=== PATIENT | female | born 1990 | race Caucasian/White ===

== ENCOUNTER → 2017-04-19 | Outpatient (CLI) | payer BC ==
--- NOTE | 2017-04-19 16:30 | US ---
EXAMINATION TYPE: US pelvic complete DATE OF EXAM: 04/19/2017 COMPARISON: NONE CLINICAL HISTORY: N91.5 Oligomenorrhea. IUD placement 11/10/16 TECHNIQUE: Transabdominal (TA) Date of LMP: 04/08/17 EXAM MEASUREMENTS: Uterus: 7.3 x 2.5 x 4.4 cm Endometrial Stripe: 0.6 cm Right Ovary: 4.3 x 2.0 x 2.0 cm Left Ovary: 3.5 x 1.7 x 1.4 cm 1. Uterus: Anteverted wnl 2. Endometrium: wnl, IUD visualized body/fundus 3. Right Ovary: follicles noted 4. Left Ovary: follicles noted 5. Bilateral Adnexa: wnl 6. Posterior cul-de-sac: wnl IMPRESSION: IUD in place. Otherwise unremarkable study.
== END | disposition home or self-care (01) ==
LOC: RADUSWWP 15:38
PROVIDERS: ATTEND Obstetrics & Gynecology
DX: N91.5 Oligomenorrhea, unspecified (principal); Z97.5 Presence of (intrauterine) contraceptive device
CPT/HCPCS: 76856

== ENCOUNTER → 2018-05-24 | Outpatient (CLI) | payer BC ==
--- NOTE | 2018-05-24 18:40 | CT ---
EXAMINATION TYPE: CT angio chest DATE OF EXAM: 05/24/2018 6:27 PM COMPARISON: None HISTORY: Chest pain, SOB CT DLP: 472.8 mGycm Automated exposure control for dose reduction was used. CONTRAST: CTA scan of the thorax is performed with IV Contrast, patient injected with 100 mL of Isovue 370, [facility]. There are 3-D post processed images.. FINDINGS: The lungs are clear of infiltrate. There is no evidence of a pulmonary mass. There is no pleural effu crystal or pneumothorax. There is no mediastinal adenopathy. Thoracic aorta appears normal. There is no aneurysm or dissection. There are no hilar masses. There is normal contrast opacification of the pulmonary arteries. I see no filling defects. The bony thorax appears intact. IMPRESSION: NEGATIVE EXAM. NO EVIDENCE OF PULMONARY EMBOLISM.
== END ==
LOC: RADCTMAIN 17:34
PROVIDERS: ATTEND Family Medicine
DX: R07.1 Chest pain on breathing (principal)
CPT/HCPCS: 71275; Q9967

== ENCOUNTER 2019-01-12 06:55 | Day surgery (SDC) | payer BC ==
[2019-01-10 15:37] VITALS: BMI 48.6
[~2019-01-12 06:55] MED LIST: LACTATED RINGERS 1,000 ML IV SCH; LIDOCAINE 1% 20 ML VIAL (10MG/ML) FOR IV START INTRADERMA PRN
[2019-01-12 07:13] VITALS: TEMP 99
[2019-01-12] MEDS ORDERED: LACTATED RINGERS 1,000 ML IV ONE ×2 (07:21)
[2019-01-12] MEDS ORDERED: LIDOCAINE 1% INJ 10MG/ML (20 ML MDV) ONE (07:32)
[2019-01-12] MEDS ORDERED: MIDAZOLAM 2 MG/2 ML VIAL ONE (07:32)
[2019-01-12] MEDS ORDERED: PROPOFOL 10 MG/ML 20 ML VIAL IV ONE (07:32)
--- NOTE | 2019-01-12 08:13 | P.PCN ---
Date of Procedure: 01/12/19 Description of Procedure: Brief history: 28-year-old female who presents in the outpatient setting for EGD and colonoscopy. The patient was recently seen in clinic at which time she reported change in bowel habits and abdominal pain. She reported typically having 3-4 bowel movements daily. No nighttime bowel movements. She reports associated urgency with bowel movements. Previously the patient was reporting one bowel movement per day. She does have a history of Clostridium difficile colitis which she was treated for with Flagyl approximately one year ago. Recent testing for Clostridium difficile was negative. She also reports occasional blood per rectum, mainly with wiping. Abdominal pain is described as intermittent in the lower abdominal area and cramping in nature. She has taken dicyclomine as needed for the pain. In addition she is also having epigastric abdominal pain which she describes as more aching in nature. She reports associated nausea and vomiting. Occasional heartburn once per week. No dysphagia or odynophagia. Previous colonoscopy was 5 years ago for constipation. Procedure performed: Esophagogastroduodenoscopy with biopsy Colonoscopy with biopsy and polypectomy Estimated blood loss: Minimal. Preoperative diagnosis: Epigastric abdominal pain, altered bowel function, bright red blood per rectum Anesthesia: MAC Procedure: After informed consent was obtained from the patient was brought into the endoscopy unit and IV sedation was administered by anesthesia under continuous monitoring. Initially upper endoscopy was done. The Olympus GF 190 video endoscope was inserted inserted into the mouth and esophagus intubated without any difficulty and was gradually advanced into the stomach and duodenum and carefully examined. The bulb and second part of the duodenum appeared normal, with biopsies in the setting of altered bowel. The scope was then withdrawn into the stomach adequately insufflated with air and upon careful examination the antrum and body, cardia and fundus appeared grossly normal, however there was some erythema and superficial erosions in the antrum and body suggestive of moderate gastritis with biopsies of the antrum and body taken. The scope was then withdrawn into the esophagus. The GE junction was located at 37 cm to the incisors. It appeared regular with no erythema erosions or ulcerations. Rest of the esophagus appeared normal. Patient tolerated the procedure well. At this time the patient continued to remain sedation. Initial digital rectal examination was normal. Olympus CF 190 video colonoscope was then inserted into the rectum and gradually advanced to the cecum without any difficulty. The terminal ileum was intubated and appeared normal, biopsies were taken. Careful examination was performed as the scope was gradually being withdrawn. The prep was excellent. The cecum, ascending colon, transverse colon, descending colon, sigmoid colon and rectum appeared normal, with random biopsies taken of the right colon, transverse colon and left colon in the setting of altered bowel function. A diminutive 2 mm sessile transverse colon polyp was removed with cold forcep polypectomy. Retroflexion was performed in the rectum and no lesions were noted, mild internal hemorrhoids seen. Patient tolerated the procedure well. Impression: 1. Moderate gastritis antrum and body, biopsied. Duodenal biopsies. 2. Random biopsies, terminal ileum, right colon, transverse colon and left colon. Cold forcep polypectomy of a diminutive transverse colon polyp. Mild internal hemorrhoids. Recommendations: Findings of this examination were discussed with the patient as well as her fianc. Okay to resume diet. Await pathology from biopsies. Follow up with gastroenterology as previously scheduled. Continue dicyclomine as needed for abdominal pain. Consideration is for initiation of PPI therapy on outpatient follow-up.
[2019-01-12 08:26] VITALS: BP 129/75; PULSE 85; RESP 18
== END 2019-01-12 08:46 | disposition home or self-care (01) ==
LOC: ORWHC2ENDO 06:55
PROVIDERS: ATTEND Internal Medicine
DX: D12.3 Benign neoplasm of transverse colon (principal); K29.50 Unspecified chronic gastritis without bleeding; K64.8 Other hemorrhoids; E66.01 Morbid (severe) obesity due to excess calories; Z68.42 Body mass index [BMI] 45.0-49.9, adult
CPT/HCPCS: 81025; 88305; 45380; 43239; J2250; J2001; J2704

== ENCOUNTER → 2019-05-27 | Outpatient (CLI) | payer BC ==
--- NOTE | 2019-05-27 11:50 | CT ---
EXAMINATION TYPE: CT abdomen pelvis w con DATE OF EXAM: 05/27/2019 COMPARISON: None HISTORY: Generalized abdominal and pelvic pain with diarrhea and nausea. CT DLP: 2144.3 mGycm CONTRAST: CT scan of the abdomen and pelvis is performed with Oral Contrast and with IV Contrast, patient injec giovanny with 100 mL of Isovue M300. FINDINGS: LUNG BASES-: No visible nodule. No infiltrate. LIVER/GB: No calcified gallstones. No space occupying hepatic lesion. Biliary tree is of normal ca liber. PANCREAS: No inflammation. No distinct mass. SPLEEN: No splenic enlargement. No lesion seen. ADRENALS: No nodule. No thickening. KIDNEYS/BLADDER: No hydronephrosis. No nephrolithiasis. No distinct renal mass. Urinary bladder g rossly unremarkable. BOWEL: Normal appendix. Normal bowel caliber. No inflammation. GENITAL ORGANS: No gross abnormality. IUD is noted to be in place. LYMPH NODES: No greater than 1cm abdominal or pelvic lymph nodes are appreciated. AORTA: No significant abnormality. OSSEOUS STRUCTURES: No significant abnormality is seen. OTHER: No significant additional abnormality is seen. IMPRESSION: 1. No distinct abnormality appreciated to account for the patient's symptoms.
== END ==
LOC: RADCTMAIN 09:44
PROVIDERS: ATTEND Family Medicine
DX: R10.9 Unspecified abdominal pain (principal); R10.2 Pelvic and perineal pain; R19.7 Diarrhea, unspecified
CPT/HCPCS: 74177; Q9967 ×2

== ENCOUNTER → 2020-12-20 | Outpatient (CLI) | payer BC ==
[2020-12-20 20:34] LABS: Cyclic Citrull Pep IgG Unit <0.5 U/mL; Cyclic Citrullinated Pep IgG NEGATIVE (NEGATIVE)
[2020-12-20 21:06] LABS: Ferritin 7.5 ng/mL (10.0-291.0)
[2020-12-20 22:05] LABS: % Iron Saturation 9.36 (12.00-45.00); C Reactive Protein 0.9 mg/dL (0.0-0.8)
[2020-12-20 22:45] LABS: Hepatitis B Core IgM Non-Reactive (Non-Reactive); Hepatitis B Surface AB- Quant 6.9 mIU/mL; Hepatitis B Surface Antibody Non-Reactive (Non-Reactive); Hepatitis B Surface Antigen Non-Reactive (Non-Reactive); Hepatitis C IgG Antibody Non-Reactive (Non-Reactive)
[2020-12-20 23:51] LABS: Basophils # (A) 0.01 X 10*3/uL (0.00-0.10); Basophils % (A) 0.1 %; Eosinophils # (A) 0.13 X 10*3/uL (0.04-0.35); Eosinophils % (A) 1.9 %; HCT 36.1 % (37.2-46.3); HGB 11.5 g/dL (12.0-15.0); Lymphocytes # (A) 2.33 X 10*3/uL (0.90-5.00); Lymphocytes % (A) 33.6 %; MCHC 31.9 g/dL (32.0-37.0); Mean Platelet Volume 10.6 fL (9.5-12.2); Monocytes # (A) 0.54 X 10*3/uL (0.20-1.00); Monocytes % (A) 7.8 %; Neutrophils # (A) 3.92 X 10*3/uL (1.80-7.70); Neutrophils % (A) 56.5 %; Platelet Count 308 X 10*3/uL (140-440); RDW 14.9 % (11.5-14.5); WBC 6.94 X 10*3/uL (4.50-10.00)
[2020-12-21 01:58] LABS: Erythrocyte Sedimentation Rate 30 mm/Hr (0-20)
[2020-12-21 12:25] LABS: HLA B27 NEGATIVE
== END | disposition home or self-care (01) ==
LOC: LABWHC1 13:34
PROVIDERS: ATTEND Nurse Practitioner Family
DX: N92.0 Excessive and frequent menstruation with regular cycle (principal); M19.90 Unspecified osteoarthritis, unspecified site; R10.9 Unspecified abdominal pain
CPT/HCPCS: 36415; 82728; 83540; 83550; 84443; 85025; 85652; 86140; 86200; 86480; 86704; 86705; 86706; 86803; 86812; 87340

== ENCOUNTER 2021-05-14 06:21 | Day surgery (SDC) | payer BC ==
[2021-05-07 10:06] VITALS: BMI 52.2
--- NOTE | 2021-05-13 11:13 | P.HPOB ---
History of Present Illness H&P Date: 05/13/21 Chief Complaint: Menorrhagia with irregular cycle This is a 30 y.o. female, 0, para 0, who presents for dilatation and curettage with hysteroscopy and Novasure endometrial ablation due to menorrhagia with irregular cycle. She also has a Paragard IUD that she wants removed at the same time. She had Paragard placed about a year ago and ever since has more cramping and breakthrough bleeding. She is also having irregular periods and didn't have a period from October until February and then bled for almost a month. Bleeding has been very heavy, going through ultra tampon within 1 hour. Ultrasound showed uterus measuring 7.7 x 2.7 x 4.6 cm with IUD in position. Normal ovaries. She is aware that Novasure is not a form of control. Her plans vasectomy. She has not done well with hormonal forms of control. OB Hx: G0. 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 Works part-time with [employer]. Review of Systems Constitutional: Reports fatigue, Denies chills, Denies fever Eyes: denies blurred vision, denies pain Ears, nose, mouth and throat: Denies headache, Denies sore throat Cardiovascular: Denies chest pain, Denies shortness of breath Respiratory: Denies cough Gastrointestinal: Reports heartburn Genitourinary: Reports dysmenorrhea, Reports menorrhagia, Denies dysuria, Denies hematuria Menstruation: Reports menses 8 or > days, Reports menses variable, Reports period heavy Musculoskeletal: Reports muscle cramps Integumentary: Denies pruritus, Denies rash Neurological: Denies numbness, Denies weakness Psychiatric: Reports anxiety, Reports depression Past Medical History Past Medical History: No Reported History Additional Past Medical History / Comment(s): IBS. History of Any Multi-Drug Resistant Organisms: None Reported Additional Past Surgical History / Comment(s): Colonoscopy. Past Anesthesia/Blood Transfusion Reactions: No Reported Reaction Additional Past Anesthesia/Blood Transfusion Reaction / Comment(s): Never has had general anesthesia. Vertigo. Past Psychological History: Anxiety, Depression Smoking Status: Never smoker Past Alcohol Use History: Occasional Past Drug Use History: None Reported - Past Family History Mother Family Medical History: No Reported History Medications and Allergies Home Medications Medication Instructions Recorded Confirmed Type Omeprazole (Unknown Dose) 1 tab PO QAM 05/07/21 05/07/21 History Sertraline [Zoloft] 100 mg PO DAILY 05/13/21 05/14/21 History Allergies Allergy/AdvReac Type Severity Reaction Status Date / Time Iodinated Contrast Media Allergy Rash/Hives Verified 05/07/21 10:09 Exam Osteopathic Statement: *. No significant issues noted on an osteopathic structural exam other than those noted in the History and Physical/Consult. HEENT: within normal limits Heart: regular rate and rhythm Lungs: clear to auscultation bilaterally Abdomen: soft, non-tender Pelvic: uterus small, anteverted, non-tender Extremities: neg. Radha's Assessment and Plan (1) Menorrhagia with irregular cycle Current Visit: No Status: Acute Code(s): N92.1 - EXCESSIVE AND FREQUENT MENSTRUATION WITH IRREGULAR CYCLE SNOMED Code(s): 930895106 Plan: Proceed with dilatation and curettage with hysteroscopy and Novasure endometrial ablation and removal of IUD. I have discussed the risks, benefits, and alternative therapies for the above-mentioned procedure and for both sedation/anesthesia as well as necessary blood products administration, if indicated, as they pertain to this patient. The patient has indicated her understanding and acceptance of the risks and procedures discussed.
[~2021-05-14 06:21] MED LIST changes: +DEXAMETHASONE SOD PHOSPHATE 4 MG/ML 1 ML VIAL IV ONE; +LIDOCAINE 1% (10MG/ML) FOR IV START INTRADERMA PRN; -LIDOCAINE 1% 20 ML VIAL (10MG/ML) FOR IV START INTRADERMA PRN; +MIDAZOLAM 2 MG/2 ML VIAL IV PRN; +ONDANSETRON 4 MG/2 ML VIAL IVP ONE; +Pre Op ABX Message 1 EACH MISC MISCELLANE ONE
[2021-05-14] MEDS ORDERED: HYDROmorphone 0.5 MG/0.5 ML SYRINGE IVP PRN (07:00)
[2021-05-14] MEDS ORDERED: SCOPOLAMINE 1.5MG/72HR PATCH TRANSDERM ONE (07:06)
[2021-05-14] MEDS ORDERED: MIDAZOLAM 2 MG/2 ML VIAL ONE (07:23)
[2021-05-14] MEDS ORDERED: LIDOCAINE 1% INJ 10MG/ML (20 ML MDV) ONE (07:23)
[2021-05-14] MEDS ORDERED: fentaNYL (PF) 50 MCG/ML 2 ML AMP ONE (07:23)
[2021-05-14] MEDS ORDERED: PROPOFOL 10 MG/ML 20 ML VIAL IV ONE (07:23)
[2021-05-14] MEDS ORDERED: SUCCINYLCHOLINE CHLORIDE VIAL 200 MG/10 ML VIAL IV ONE (07:23)
--- NOTE | 2021-05-14 07:59 | P.OP ---
Date of Procedure: 05/14/21 Preoperative Diagnosis: Menorrhagia with irregular cycle Postoperative Diagnosis: Same Procedure(s) Performed: Dilation and curettage with hysteroscopy and NovaSure endometrial ablation Removal of IUD Anesthesia: SHERRON Surgeon: Desi Crespo Estimated Blood Loss (ml): 10 Pathology: other (Endometrial curettings) Condition: stable Disposition: same day Indications for Procedure: This is a 30 y.o. female, 0, para 0, who presents for dilatation and curettage with hysteroscopy and Novasure endometrial ablation due to menorrhagia with irregular cycle. She also has a Paragard IUD that she wants removed at the same time. She had Paragard placed about a year ago and ever since has more cramping and breakthrough bleeding. She is also having irregular periods and didn't have a period from October until February and then bled for almost a month. Bleeding has been very heavy, going through ultra tampon within 1 hour. Ultrasound showed uterus measuring 7.7 x 2.7 x 4.6 cm with IUD in position. Normal ovaries. She is aware that Novasure is not a form of control. Her plans vasectomy. She has not done well with hormonal forms of control. Operative Findings: Uterus is anteverted, sounded to 8 cm. Cervix is sounded to 3 cm. Upon hysteroscopy, a dyssynchronous endometrial pattern was noted. Both tubal ostia are visualized. A moderate amount of endometrial curettings are obtained. ParaGard IUD strings were visualized at the endocervix. Description of Procedure: The patient is taken to the operating room. She is placed in the dorsal lithotomy position after general anesthesia was given. She is prepped and draped in the normal sterile fashion. Bladder is drained with a catheter and then removed. Pelvic exam is performed under anesthesia. Uterus is found to be anteverted with no adnexal masses. She is placed in slight Trendelenburg position. A right angle retractor is used to visualize the cervix. The anterior lip of the cervix is grasped with a single-tooth tenaculum. IUD strings are visualized. There grasped with a ring forcep and the IUD is completely removed and discarded. A ParaGard IUD was noted. Cervix is sounded to 3 cm. Uterus is sounded to 8 cm. Cervix is gently dilated with Ríos dilators until a hysteroscope could be passed. Hysteroscopy is performed using normal saline. The above noted findings are noted. Next a polyp forceps is introduced. A moderate amount of tissue was obtained. Next medium-sized size sharp curette was placed. A moderate amount of endometrial curettings were obtained. Next NovaSure array was inserted into the endometrial cavity. Length was set at 5 cm and width was determined to be 3.6 cm. Next cavity assessment was completed and passed on the first try. Next NovaSure array was fired at 99 W for 70 seconds. Next the array was removed, inspected and then discarded. Next the hysteroscope was reinserted. Uniform charring was noted. Pictures were taken. Hysteroscope was removed. Single-tooth tenaculum was removed from the anterior lip of the cervix. Minimal bleeding was noted. All other instruments removed from the vagina. Sponge counts were correct. Patient is taken to recovery room in stable condition.
[2021-05-14 08:20] VITALS: TEMP 98.2
[2021-05-14] MEDS ORDERED: KETOROLAC 15 MG/ML 1 ML VIAL ONE (08:21)
[2021-05-14 09:13] VITALS: RESP 16
[2021-05-14 09:28] VITALS: BP 116/82; PULSE 72
== END 2021-05-14 09:50 | disposition home or self-care (01) ==
LOC: OR 06:21
PROVIDERS: ATTEND Obstetrics & Gynecology
DX: N92.1 Excessive and frequent menstruation with irregular cycle (principal); F32.9 Major depressive disorder, single episode, unspecified; K21.9 Gastro-esophageal reflux disease without esophagitis; E66.01 Morbid (severe) obesity due to excess calories; F41.9 Anxiety disorder, unspecified; Z30.432 Encounter for removal of intrauterine contraceptive device; K58.9 Irritable bowel syndrome, unspecified; Z79.899 Other long term (current) drug therapy
CPT/HCPCS: 88305; 58563; 58301; J2250; J0330; J1100; J2405; J2001; J3010; J1885; J2704; J1170

== ENCOUNTER → 2022-01-10 | Outpatient (CLI) | payer BC ==
[2022-01-10 16:16] LABS: Basophils # (A) 0.03 X 10*3/uL (0.00-0.10); Basophils % (A) 0.5 %; Eosinophils # (A) 0.14 X 10*3/uL (0.04-0.35); Eosinophils % (A) 2.1 %; HCT 40.2 % (37.2-46.3); HGB 12.8 g/dL (12.0-15.0); Immature Grans, Automated 0.2 %; Lymphocytes # (A) 2.12 X 10*3/uL (0.90-5.00); Lymphocytes % (A) 32.3 %; MCH 26.9 pg (27.0-32.0); MCHC 31.8 g/dL (32.0-37.0); MCV 84.6 fL (80.0-97.0); Monocytes # (A) 0.46 X 10*3/uL (0.20-1.00); NRBC Per 100 WBC 0 /100 WBCS (0.0-0.0); Neutrophils # (A) 3.81 X 10*3/uL (1.80-7.70); Neutrophils % (A) 57.9 %; Platelet Count 298 X 10*3/uL (140-440); RBC 4.75 X 10*6/uL (4.10-5.20); RDW 14.2 % (11.5-14.5); WBC 6.57 X 10*3/uL (4.50-10.00)
[2022-01-10 16:18] LABS: ALT 19 U/L (8-44); AST 19 U/L (13-35); African American GFR (CKD) 100.1 (60.0-200.0); Albumin 4.1 g/dL (3.8-4.9); Albumin/Globulin Ratio 1.28 (1.60-3.17); Alkaline Phosphatase 81 U/L (41-126); BUN/Creat Ratio 12.78 Ratio (12.00-20.00); Blood Urea Nitrogen 11.5 mg/dL (9.0-27.0); Calcium 9.2 mg/dL (8.7-10.3); Chloride 106 mmol/L (96-109); Chol/HDL Ratio 3.51 Ratio; Creatine Kinase 68 U/L (26-186); Globulin 3.2 g/dL (1.6-3.3); Glucose 94 mg/dL (70-110); LDL Cholesterol,Calculated 133.9 mg/dL (0.0-131.0); Non-African American GFR(CKD) 86.4 (60.0-200.0); Sodium 139 mmol/L (135-145); Total Protein 7.3 g/dL (6.2-8.2)
[2022-01-10 16:19] LABS: Protein, Total 7.1 g/dL (6.2-8.2)
[2022-01-10 16:34] LABS: Erythrocyte Sedimentation Rate 34 mm/Hr (0-20)
[2022-01-10 18:12] LABS: Thyroid Peroxidase Antibodies <9.0 U/mL (0.0-33.0)
[2022-01-12 13:45] LABS: Albumin 3.96 g/dL (3.80-4.90); Gamma Globulin 1.05 g/dL (0.70-1.50)
[2022-01-13 11:10] LABS: Free Kappa Lt Chain Qnt, Serum 1.65 mg/dL (0.33-1.94); Free Lambda Lt Chain Qnt, Seru 1.04 mg/dL (0.57-2.63)
== END | disposition home or self-care (01) ==
LOC: LABWHC1 11:07
PROVIDERS: ATTEND Nurse Practitioner Family
DX: Z13.220 Encounter for screening for lipoid disorders (principal); M62.81 Muscle weakness (generalized); R53.82 Chronic fatigue, unspecified
CPT/HCPCS: 36415; 80053; 80061; 82306; 82550; 82607; 83735; 83874; 83883; 84165; 84443; 84481; 85025; 85652; 86038; 86140; 86334; 86376

== ENCOUNTER → 2022-04-16 | Outpatient (CLI) | payer BC ==
--- NOTE | 2022-04-16 14:20 | P.SLEEP ---
History of Present Illness DATE: 04/16/2022 CONSULTATION/NEW PATIENT EVALUATION HISTORY OF PRESENT ILLNESS/SLEEP-WAKE EVALUATION: 31 year old lady had been evaluated in the sleep center for possible obstructive sleep apnea hypopnea syndrome and significant excessive daytime sleepiness. SLEEP SCHEDULE: Usually sleep schedule on weekdays from 10 PM until 6 AM, during days off from 11 PM to 11 AM, patient gets out of bed and 1 PM on weekend. FALLING ASLEEP: No problem with falling asleep, no TV in bedroom. DURING SLEEP: Patient usually sleeps on the back and side position, with the snoring and awakenings from sleep 2 times without nocturia. Positive history of heartburn. Positive history of hypnogogical hallucinations and sleep off paralysis, no history of cataplexy . DURING THE DAY/WAKE STATE: In the morning patient wake up tired, has difficulties to pay attention, falling asleep during the day. Patient has promised with memory, irritability and depression. [place] sleepiness scale is increased to 11. Patient take at least 1 nap at 2 PM. Positive history of vivid dreams during naps. PAST MEDICAL HISTORY: Depression. PAST SURGICAL HISTORY: Uterine ablation. MEDICATIONS: Sertraline 100 mg once a day, Adderall 15 mg once a day, omeprazole 20 mg once a day. SOCIAL HISTORY: No history of smoking, alcohol consumption occasional. FAMILY HISTORY: Hypertension, heart problems, kidney disease, mental illness. REVIEW OF SYSTEMS: Snoring, awakenings from sleep, sleepiness, history of sleep of paralysis. No fevers. No double vision. No recent chest pain. No shortness of breath. No abdominal pain. No bleeding episodes. No blood in urine. No seizure episodes. PHYSICAL EXAMINATION: GENERAL: A pleasant patient without any distress. VITAL SIGNS: BP 130/84 , HR 97 , RR 18 , weight 301.4 pounds, height 5 foot 4 inches, body mass index 51.6 . HEENT: PERRLA, EOMI. Evaluation of oropharynx showed tongue protrudes midline, low position of soft palate Mallampati4. NECK: Supple. No JVD. Thyroid is not palpable. 15-1/2 inches in circumference. LUNGS: Clear to percussion and to auscultation. Good air exchange. No wheezing or rhonchi. HEART: S1, S2 regular. No murmurs, gallops or rubs. ABDOMEN: Soft and nontender. Bowel sounds are present. No organomegaly appreciated. Obese. EXTREMITIES: No clubbing or cyanosis. CADDY MASTER: Awake, alert, and oriented x3. Cranial nerves 2 to 7 intact. There is no fasciculation or atrophy noted. No focal deficits observed. ASSESSMENT: 1. Snoring, awakenings from sleep, extremely low position of soft palate Mallampati 4, sleepiness. Obstructive sleep apnea hypopnea syndrome. 2. Significant excessive daytime sleepiness. [place] Sleepiness Scale is increased while patient is on treatment with Adderall. Positive history of possible hypnogogical hallucinations. Differential diagnosis includes narcolepsy. 3 history of sleep off paralysis episodes. 4. Obesity body mass index 51.6. 5 history of depression. 6. Status post a uterus ablation for bleeding. 7. Acid reflux. PLAN: 1. Polysomnography for evaluation of patient's breathing during sleep. 2. CPAP/BiPAP titration if sleep study confirms obstructive sleep apnea- hypopnea syndrome. 3. Preferable position during sleep on the side. 4. No driving if patient feels any sleepiness. Patient is aware of civil and criminal liability for unsafe driving. 5. Sleep hygiene with regular sleep time for at least 7.5-8 hours. 6. Losing weight. 7. If sleep study will be negative for obstructive sleep apnea hypopnea syndrome patient will need multiple sleep latency test. Thank you very much for referring this patient for consultation. Sincerely, Lucio Chao MD, PhD, FAASM. Diplomat of [place] [employer], Sleep Medicine Board by [place] [employer] [place] [employer] [facility] Past Medical History Past Medical History: No Reported History Additional Past Medical History / Comment(s): IBS. History of Any Multi-Drug Resistant Organisms: None Reported Additional Past Surgical History / Comment(s): Colonoscopy. Past Anesthesia/Blood Transfusion Reactions: No Reported Reaction Additional Past Anesthesia/Blood Transfusion Reaction / Comment(s): Never has had general anesthesia. Vertigo. Past Psychological History: Anxiety, Depression Smoking Status: Never smoker Past Alcohol Use History: Occasional Past Drug Use History: None Reported - Past Family History Mother Family Medical History: No Reported History Medications and Allergies Home Medications Medication Instructions Recorded Confirmed Type Omeprazole (Unknown Dose) 1 tab PO QAM 05/07/21 05/07/21 History Sertraline [Zoloft] 100 mg PO DAILY 05/13/21 05/14/21 History Allergies Allergy/AdvReac Type Severity Reaction Status Date / Time Iodinated Contrast Media Allergy Rash/Hives Verified 05/07/21 10:09 Sleep Note - Sleep Note Sleep Note: Temperature: Pulse Rate: Respiratory Rate: Blood Pressure: SpO2: Height: Weight: BMI: Neck Circumference:
== END ==
LOC: SLEEP 13:48
PROVIDERS: ATTEND Internal Medicine
DX: G47.33 Obstructive sleep apnea (adult) (pediatric) (principal); E66.9 Obesity, unspecified; Z68.43 Body mass index [BMI] 50.0-59.9, adult; F32.A Depression, unspecified; Z98.890 Other specified postprocedural states; K21.9 Gastro-esophageal reflux disease without esophagitis; Z86.69 Personal history of other diseases of the nervous system and sense organs; Z91.041 Radiographic dye allergy status
CPT/HCPCS: 99211

== ENCOUNTER 2022-07-07 10:53 | Emergency (ER) | payer BC ==
[2022-07-07 11:05] VITALS: TEMP 98
[2022-07-07] MEDS ORDERED: KETOROLAC 15 MG/ML 1 ML VIAL IVP STA (11:11)
[2022-07-07] MEDS ORDERED: ONDANSETRON 4 MG/2 ML VIAL IVP STA (11:11)
[2022-07-07] MEDS ORDERED: FAMOTIDINE 20 MG/2 ML VIAL IV STA (11:11)
[2022-07-07] MEDS ORDERED: SODIUM CHLORIDE 0.9% 1,000 ML IV STA (11:11)
--- NOTE | 2022-07-07 11:19 | ED ---
Chest Pain HPI - General Chief Complaint: Chest Pain Stated Complaint: chest pain Time Seen by Provider: 07/07/22 11:06 Source: patient, RN notes reviewed Mode of arrival: ambulatory Limitations: no limitations - History of Present Illness Initial Comments: This is a 31-year-old female who presents to the emergency department for chest pain. States that around 5 AM, she woke up and had a tightness in the center of her chest. Denies any radiation of symptoms. She had associated nausea and lightheadedness. She feels like she is unable to take a deep breath. Denies any history of similar symptoms in the past. She does have a history of obstructive sleep apnea but no other respiratory issues. There is no history of cardiac issues in any of her immediate family members. Denies any fevers, chills, sore throat, cough, abdominal pain, vomiting, back pain, or headaches. MD Complaint: chest pain Pain Location: substernal Pain Radiation: none Quality: tightness, heaviness Consistency: constant Anginal Symptoms: nausea Treatments Prior to Arrival: none - Related Data Home Medications Medication Instructions Recorded Confirmed Sertraline [Zoloft] 100 mg PO DAILY 05/13/21 07/07/22 Omeprazole [PriLOSEC] 20 mg PO DAILY 07/07/22 07/07/22 modafiniL [Provigil] 200 mg PO DAILY 07/07/22 07/07/22 Allergies Allergy/AdvReac Type Severity Reaction Status Date / Time Iodinated Contrast Media Allergy Rash/Hives Verified 07/07/22 12:34 Review of Systems ROS Statement: Those systems with pertinent positive or pertinent negative responses have been documented in the HPI. ROS Other: All systems not noted in ROS Statement are negative. EKG Findings - EKG Comments: EKG Findings:: Sinus rhythm. Ventricular rate 74 bpm, WA interval 139 ms, QRS duration 89 ms, QTC 410 ms. Past Medical History Past Medical History: No Reported History Additional Past Medical History / Comment(s): IBS. History of Any Multi-Drug Resistant Organisms: None Reported Additional Past Surgical History / Comment(s): Colonoscopy. Past Anesthesia/Blood Transfusion Reactions: No Reported Reaction Additional Past Anesthesia/Blood Transfusion Reaction / Comment(s): Never has had general anesthesia. Vertigo. Past Psychological History: Anxiety, Depression Smoking Status: Never smoker Past Alcohol Use History: Occasional Past Drug Use History: None Reported - Past Family History Mother Family Medical History: No Reported History General Exam Limitations: no limitations General appearance: alert, in no apparent distress Head exam: Present: atraumatic, normocephalic, normal inspection Respiratory exam: Present: normal lung sounds bilaterally. Absent: respiratory distress, wheezes, rales, rhonchi, stridor, chest wall tenderness Cardiovascular Exam: Present: regular rate, normal rhythm, normal heart sounds. Absent: systolic murmur, diastolic murmur, rubs, gallop, clicks GI/Abdominal exam: Present: soft, normal bowel sounds. Absent: distended, tenderness, guarding, rebound, rigid Neurological exam: Present: alert, oriented X3, CN II-XII intact Psychiatric exam: Present: normal affect, normal mood Skin exam: Present: warm, dry, intact, normal color. Absent: rash Course Vital Signs 07/07/22 07/07/22 07/07/22 11:03 12:05 14:11 Temperature 98 F Pulse Rate 80 71 86 Respiratory 20 18 Rate Blood Pressure 127/82 124/70 O2 Sat by Pulse 99 98 Oximetry 07/07/22 15:18 Temperature Pulse Rate Respiratory 18 Rate Blood Pressure O2 Sat by Pulse Oximetry Chest Pain MDM - MDM This is a 31-year-old female who presents to the emergency department for chest pain. Chest x-ray reveals no acute cardiopulmonary process. Lab work reveals an elevated d-dimer of 1.83. CTA of the chest was subsequently obtained. This did not identify any signs of a pulmonary embolus or other acute abnormalities to account for the patient's symptoms. Lab work was otherwise nonactionable. COVID and influenza testing were negative. She was given IV fluids, Zofran, Toradol, and Pepcid. Her symptoms completely resolved afterwards. The Solu- Medrol and Benadryl were administered due to the contrast allergy and had to be given prior to the scan. Advised the patient that her workup is negative at this time we're unable to find a cause for the chest pain. This is most likely noncardiac in nature due to the negative workup. Advised she take ibuprofen and an antacid if this happens in the future. Also instructed her to follow-up with her primary care provider to discuss if any additional testing is indicated. Return precautions reviewed in depth, the patient is instructed to return to the emergency department with any new, worsening, or concerning symptoms. Patient verbalized understanding. This case was discussed in detail with the attending ED physician. Presentation, findings, and treatment plan discussed in detail as well. - Wells Criteria Clinical Symptoms of DVT: (0) No No Alternative Diagnosis: (0) No Immobilization of Surgery in Previous 4 Weeks: (0) No Previous DVT/PE: (0) No Hemoptysis: (0) No Malignancy: (0) No - INGRID Score Age > 65: (0) No 3 or more CAD Risk Factors: (0) No Known CAD with more than 50% Stenosis: (0) No Aspirin use within the Past 7 Days: (0) No Elevated Cardiac Markers: (0) No ST Deviation Greater than 0.5mm: (0) No Disposition Clinical Impression: Non-cardiac chest pain Disposition: HOME SELF-CARE Instructions (If sedation given, give patient instructions): Noncardiac Chest Pain (ED) Additional Instructions: Return to the emergency department with any new, worsening, or concerning symptoms. If symptoms recur, try taking ibuprofen and an antacid such as Pepcid, Maalox, or Tums. Follow-up with your primary care provider to discuss if any additional testing is indicated. Follow up with your primary care provider in 1-2 days. Is patient prescribed a controlled substance at d/c from ED?: No Referrals: Regino Hernandez DO [Primary Care Provider] - 1-2 days
[2022-07-07 11:39] LABS: Basophils % (A) 0 %; Eosinophils # (A) 0.2 k/uL (0-0.7); Eosinophils % (A) 4 %; HCT 41.4 % (34.0-46.0); HGB 13.5 gm/dL (11.4-16.0); Lymphocytes # (A) 1.6 k/uL (1.0-4.8); Lymphocytes % (A) 29 %; MCH 27.7 pg (25.0-35.0); MCHC 32.5 g/dL (31.0-37.0); MCV 85.2 fL (80.0-100.0); Mean Platelet Volume 8.2; Monocytes # (A) 0.3 k/uL (0-1.0); Monocytes % (A) 5 %; Neutrophils # (A) 3.3 k/uL (1.3-7.7); Neutrophils % (A) 60 %; Platelet Count 245 k/uL (150-450); RBC 4.86 m/uL (3.80-5.40); RDW 14.5 % (11.5-15.5); WBC 5.5 k/uL (3.8-10.6)
--- NOTE | 2022-07-07 11:53 | XR ---
EXAMINATION TYPE: XR chest 2V DATE OF EXAM: 07/07/2022 COMPARISON: NONE TECHNIQUE: PA and lateral views submitted. HISTORY: Chest pain FINDINGS: The lungs are clear and there is no pneumothorax, pleural effusion, or focal pneumonia. Heart size normal. No overt failure. IMPRESSION: 1. No acute process.
[2022-07-07 11:58] LABS: ALT 29 U/L (4-34); AST 25 U/L (14-36); African American GFR (CKD) >90 (>60 ml/min/1.73 sqM); Albumin 4.2 g/dL (3.5-5.0); Alkaline Phosphatase 102 U/L (38-126); Amylase 55 U/L (30-110); Anion Gap 12 mmol/L; Blood Urea Nitrogen 13 mg/dL (7-17); Carbon Dioxide 23 mmol/L (22-30); Chloride 102 mmol/L (98-107); Glucose 92 mg/dL (74-99); Lipase 69 U/L (23-300); Magnesium 1.9 mg/dL (1.6-2.3); Non-African American GFR(CKD) >90 (>60 ml/min/1.73 sqM); Potassium 4.1 mmol/L (3.5-5.1); Sodium 137 mmol/L (137-145); Total Bilirubin 0.2 mg/dL (0.2-1.3); Total Protein 7.2 g/dL (6.3-8.2)
[2022-07-07 11:59] LABS: Partial Thromboplastin Time 24.8 sec (22.0-30.0); Prothrombin Time 10.7 sec (9.0-12.0)
[2022-07-07] MEDS ORDERED: methylPREDNISolone SOD SUCCI 125 MG/2 ML VIAL IV STA (12:34)
[2022-07-07] MEDS ORDERED: diphenhydrAMINE 50 MG/ML 1 ML VIAL IVP STA (12:34)
[2022-07-07 12:56] LABS: Appearance,Urine Clear (Clear); Bilirubin,Urine Negative (Negative); Blood,Urine Negative (Negative); Color,Urine Yellow; Glucose,Urine (UA) Negative (Negative); Ketones,Urine Negative (Negative); Leukocyte Esterase,Urine Negative (Negative); Nitrite,Urine Negative (Negative); PH, Urine 5.5 (5.0-8.0); Protein,Urine Negative (Negative); Specific Gravity,Urine 1.013 (1.001-1.035); Urobilinogen,Urine <2.0 mg/dL (<2.0)
[2022-07-07 13:12] LABS: Erythrocyte Sedimentation Rate 14 mm/hr (0-20)
[2022-07-07 14:14] VITALS: BP 124/70; PULSE 86; RESP 18
--- NOTE | 2022-07-07 14:25 | CT ---
EXAMINATION TYPE: CT chest angio for PE DATE OF EXAM: 07/07/2022 COMPARISON: CTA chest May 24, 2018 HISTORY: Chest pain, SOB, elevated d-dimer CT DLP: 743 mGycm. Automated Exposure Control for Dose Reduction was Utilized. CONTRAST: CTA scan of the thorax is performed with IV Contrast, patient injected with 100 mL of Isovue 370, pul monary embolism protocol. MIP Images are created on CT scanner and reviewed. FINDINGS: LUNGS: Some dependent atelectasis bilateral lower lungs. No suspicious focal consolidation. No concer elvia pulmonary nodules or masses. There is no pleural effusion or pneumothorax seen. The tracheobr onchial tree is patent. MEDIASTINUM: There is slightly suboptimal study with near equal contrast in the aorta and pulmonary a rteries. No CT evidence for acute pulmonary embolism. There are no greater than 1 cm hilar or mediast inal lymph nodes. No cardiomegaly or pericardial effusion is seen. OTHER: No additional significant abnormality is seen. IMPRESSION: No CT evidence for acute pulmonary embolism. No suspicious acute pulmonary process.
== END 2022-07-07 15:19 | disposition home or self-care (01) ==
LOC: EC 10:53
DX: R07.9 Chest pain, unspecified (principal); Z91.041 Radiographic dye allergy status; Z20.822 Contact with and (suspected) exposure to COVID-19
CPT/HCPCS: 36415; 93005; 85379; 80053; 85652; 82150; 83690; 83735; 84484; 85025; 85610; 85730; 86140; 81003; 81025; 87502; 87635; 71046; 71275; 99285; J1200; J2930; J2405; J1885; Q9967; 99284

== ENCOUNTER → 2022-08-13 | Outpatient (CLI) | payer BC ==
--- NOTE | 2022-08-13 16:50 | P.PN ---
Subjective DATE: 08/13/2022 FOLLOW UP VISIT. Patient returned to sleep center for follow-up visit to discuss results of sleep studies and following plan. I discussed with patient results of polysomnogram and multiple sleep latency test in details. Polysomnogram did not show any respiratory abnormalities or periodic limb movements. Results of multiple sleep latency test was borderline. Mean sleep latency 11 minutes, no sleep onset REM periods have been documented during chemo silky, which most probably exclude diagnosis of hypersomnia and narcolepsy. [place] sleepiness scale is 11, which is slightly above normal range. MEDICATIONS:1. Sertraline 2. Omeprazole 3. Modafinil During physical exam: GENERAL: A pleasant patient without any distress. VITAL SIGNS: BP 116/79, HR 70, RR 18 , weight 271.2, temperature 97.8, oxygen saturation at room air 97 percent . HEENT: PERRLA, EOMI. NECK: Supple. No JVD. LUNGS: Clear to percussion and to auscultation. Good air exchange. No wheezing or rhonchi. HEART: S1, S2 regular. ABDOMEN: Soft and nontender. Obese EXTREMITIES: No clubbing or cyanosis. 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 No focal deficit. Impressions: 1. No significant respiratory abnormalities during sleep study 2. No periodic limb movements. 3. Borderline mean sleep latency on MSLT with no sleep onset REM periods, which most probably exclude narcolepsy or hypersomnia. 4. Obesity. 5. History of depression. 6. Status post uterosacral ablation for bleeding. 7. Acid reflux. Plan: 1. Losing weight, preferable position during sleep on the side. 2. Sleep hygiene with regular time in bed for at least 8 hours. 3. Daytime naps permitted 4. Precautions related to driving. No driving if feel any sleepiness. Patient is aware about civil and criminal liability for unsafe driving, promised to follow recommendations. 5. Follow up visit in 12 months or earlier if patient has any problems. Thank you very much for allowing me to participate in the management of your patient. Lucio Chao MD, PhD, FAASM. Diplomat of [place] [employer], Sleep Medicine Board by [place] [employer] of [facility] [place]
== END ==
LOC: SLEEP 16:16
PROVIDERS: ATTEND Internal Medicine
DX: G47.33 Obstructive sleep apnea (adult) (pediatric) (principal); Z91.041 Radiographic dye allergy status; E66.9 Obesity, unspecified; K21.9 Gastro-esophageal reflux disease without esophagitis; Z98.890 Other specified postprocedural states; Z86.59 Personal history of other mental and behavioral disorders
CPT/HCPCS: 99212

== ENCOUNTER 2023-09-21 22:29 | Emergency (ER) | payer BC ==
--- NOTE | 2023-09-21 22:59 | ED ---
Abdominal Pain HPI - General Chief Complaint: Abdominal Pain Stated Complaint: Abd Pain Time Seen by Provider: 09/21/23 22:58 Source: patient, family Mode of arrival: ambulatory Limitations: no limitations - History of Present Illness Initial Comments: Quick note: Patient is a 32-year-old female presenting with chief complaint of right-sided flank pain that started today. Electronically signed Mary Benedict PA-C - Related Data Home Medications Medication Instructions Recorded Confirmed Sertraline [Zoloft] 100 mg PO DAILY 05/13/21 09/22/23 Famotidine [Pepcid] 20 mg PO BID 09/22/23 09/22/23 Semaglutide [Wegovy] 1.7 mg SQ TH 09/22/23 09/22/23 Previous Rx's Medication Instructions Recorded Docusate [Colace] 100 mg PO BID #30 capsule 09/23/23 HYDROcodone/APAP 5-325MG [[place] 1 tab PO Q6HR PRN 3 Days #12 tab 09/23/23 5-325] Allergies Allergy/AdvReac Type Severity Reaction Status Date / Time Iodinated Contrast Media Allergy Rash/Hives Verified 09/22/23 18:45 Review of Systems ROS Statement: Those systems with pertinent positive or pertinent negative responses have been documented in the HPI. ROS Other: All systems not noted in ROS Statement are negative. Past Medical History Past Medical History: No Reported History Additional Past Medical History / Comment(s): IBS. History of Any Multi-Drug Resistant Organisms: None Reported Additional Past Surgical History / Comment(s): Colonoscopy. Past Anesthesia/Blood Transfusion Reactions: No Reported Reaction Additional Past Anesthesia/Blood Transfusion Reaction / Comment(s): Never has had general anesthesia. Vertigo. Past Psychological History: Anxiety, Depression Smoking Status: Never smoker Past Alcohol Use History: Occasional Past Drug Use History: None Reported - Past Family History Mother Family Medical History: No Reported History General Exam - General Exam Comments Initial Comments: Visual Physical Exam Vital signs reviewed General: Well-appearing, nontoxic, no acute distress. Head: Normocephalic, atraumatic Eyes: PERRLA, EOMI ENT: Airway patent Chest: Nonlabored breathing Skin: No visual rash, normal skin tone Neuro: Alert and oriented 3 Musculoskeletal: No gross abnormalities Limitations: no limitations Course Vital Signs 09/21/23 22:49 Temperature 98.1 F Pulse Rate 93 Respiratory 18 Rate Blood Pressure 120/78 O2 Sat by Pulse 93 L Oximetry Medical Decision Making - Medical Decision Making Patient was initially evaluated in triage due to no rooms being available, patient then left from the waiting room AGAINST MEDICAL ADVICE - Lab Data Result diagrams: 09/21/23 22:53 09/21/23 22:53 Lab Results 09/21/23 09/21/23 09/21/23 Range/Units 22:53 22:53 23:10 WBC 12.2 H (3.8-10.6) k/uL RBC 4.84 (3.80-5.40) m/uL Hgb 14.7 (11.4-16.0) gm/dL Hct 42.9 (34.0-46.0) % MCV 88.6 (80.0-100.0) fL MCH 30.4 (25.0-35.0) pg MCHC 34.3 (31.0-37.0) g/dL RDW 13.9 (11.5-15.5) % Plt Count 256 (150-450) k/uL MPV 7.8 Neutrophils % 75 % Lymphocytes % 19 % Monocytes % 4 % Eosinophils % 2 % Basophils % 0 % Neutrophils # 9.1 H (1.3-7.7) k/uL Lymphocytes # 2.3 (1.0-4.8) k/uL Monocytes # 0.5 (0-1.0) k/uL Eosinophils # 0.2 (0-0.7) k/uL Basophils # 0.0 (0-0.2) k/uL Sodium 138 (137-145) mmol/L Potassium 3.7 (3.5-5.1) mmol/L Chloride 108 H (98-107) mmol/L Carbon Dioxide 22 (22-30) mmol/L Anion Gap 8 mmol/L BUN 9 (7-17) mg/dL Creatinine 0.71 (0.52-1.04) mg/dL Est GFR (CKD-EPI)AfAm >90 (>60 ml/min/1.73 sqM) Est GFR (CKD-EPI)NonAf >90 (>60 ml/min/1.73 sqM) Glucose 91 (74-99) mg/dL Calcium 9.7 (8.4-10.2) mg/dL Total Bilirubin 0.5 (0.2-1.3) mg/dL AST 20 (14-36) U/L ALT 17 (4-34) U/L Alkaline Phosphatase 83 (38-126) U/L Total Protein 7.1 (6.3-8.2) g/dL Albumin 4.1 (3.5-5.0) g/dL Amylase 53 (30-110) U/L Lipase 105 (23-300) U/L Urine Color Urine Appearance (Clear) Urine pH (5.0-8.0) Ur Specific [place] (1.001-1.035) Urine Protein (Negative) Urine Glucose (UA) (Negative) Urine Ketones (Negative) Urine Blood (Negative) Urine Nitrite (Negative) Urine Bilirubin (Negative) Urine Urobilinogen (<2.0) mg/dL Ur Leukocyte Esterase (Negative) Urine HCG, Qual Not Detected (Not Detectd) 09/21/23 Range/Units 23:10 WBC (3.8-10.6) k/uL RBC (3.80-5.40) m/uL Hgb (11.4-16.0) gm/dL Hct (34.0-46.0) % MCV (80.0-100.0) fL MCH (25.0-35.0) pg MCHC (31.0-37.0) g/dL RDW (11.5-15.5) % Plt Count (150-450) k/uL MPV Neutrophils % % Lymphocytes % % Monocytes % % Eosinophils % % Basophils % % Neutrophils # (1.3-7.7) k/uL Lymphocytes # (1.0-4.8) k/uL Monocytes # (0-1.0) k/uL Eosinophils # (0-0.7) k/uL Basophils # (0-0.2) k/uL Sodium (137-145) mmol/L Potassium (3.5-5.1) mmol/L Chloride (98-107) mmol/L Carbon Dioxide (22-30) mmol/L Anion Gap mmol/L BUN (7-17) mg/dL Creatinine (0.52-1.04) mg/dL Est GFR (CKD-EPI)AfAm (>60 ml/min/1.73 sqM) Est GFR (CKD-EPI)NonAf (>60 ml/min/1.73 sqM) Glucose (74-99) mg/dL Calcium (8.4-10.2) mg/dL Total Bilirubin (0.2-1.3) mg/dL AST (14-36) U/L ALT (4-34) U/L Alkaline Phosphatase (38-126) U/L Total Protein (6.3-8.2) g/dL Albumin (3.5-5.0) g/dL Amylase (30-110) U/L Lipase (23-300) U/L Urine Color Light Yellow Urine Appearance Clear (Clear) Urine pH 7.5 (5.0-8.0) Ur Specific [place] 1.015 (1.001-1.035) Urine Protein Negative (Negative) Urine Glucose (UA) Negative (Negative) Urine Ketones Negative (Negative) Urine Blood Negative (Negative) Urine Nitrite Negative (Negative) Urine Bilirubin Negative (Negative) Urine Urobilinogen <2.0 (<2.0) mg/dL Ur Leukocyte Esterase Negative (Negative) Urine HCG, Qual (Not Detectd) Disposition Clinical Impression: Appendicitis Disposition: LEFT AGAINST MEDICAL ADVICE Condition: Undetermined Referrals: Regino Hernandez DO [Primary Care Provider] - 1-2 days
[2023-09-21 23:11] VITALS: BP 120/78; PULSE 93; RESP 18; TEMP 98.1
[2023-09-21 23:18] LABS: Basophils % (A) 0 %; Eosinophils # (A) 0.2 k/uL (0-0.7); Eosinophils % (A) 2 %; HCT 42.9 % (34.0-46.0); HGB 14.7 gm/dL (11.4-16.0); Lymphocytes # (A) 2.3 k/uL (1.0-4.8); Lymphocytes % (A) 19 %; MCH 30.4 pg (25.0-35.0); MCHC 34.3 g/dL (31.0-37.0); MCV 88.6 fL (80.0-100.0); Mean Platelet Volume 7.8; Monocytes # (A) 0.5 k/uL (0-1.0); Monocytes % (A) 4 %; Neutrophils # (A) 9.1 k/uL (1.3-7.7); Neutrophils % (A) 75 %; Platelet Count 256 k/uL (150-450); RBC 4.84 m/uL (3.80-5.40); RDW 13.9 % (11.5-15.5); WBC 12.2 k/uL (3.8-10.6)
[2023-09-21 23:26] LABS: ALT 17 U/L (4-34); AST 20 U/L (14-36); African American GFR (CKD) >90 (>60 ml/min/1.73 sqM); Albumin 4.1 g/dL (3.5-5.0); Alkaline Phosphatase 83 U/L (38-126); Amylase 53 U/L (30-110); Anion Gap 8 mmol/L; Blood Urea Nitrogen 9 mg/dL (7-17); Calcium 9.7 mg/dL (8.4-10.2); Carbon Dioxide 22 mmol/L (22-30); Chloride 108 mmol/L (98-107); Glucose 91 mg/dL (74-99); Lipase 105 U/L (23-300); Non-African American GFR(CKD) >90 (>60 ml/min/1.73 sqM); Potassium 3.7 mmol/L (3.5-5.1); Sodium 138 mmol/L (137-145); Total Bilirubin 0.5 mg/dL (0.2-1.3); Total Protein 7.1 g/dL (6.3-8.2)
[2023-09-21 23:59] LABS: Appearance,Urine Clear (Clear); Bilirubin,Urine Negative (Negative); Blood,Urine Negative (Negative); Color,Urine Light Yellow; Glucose,Urine (UA) Negative (Negative); Ketones,Urine Negative (Negative); Leukocyte Esterase,Urine Negative (Negative); Nitrite,Urine Negative (Negative); PH, Urine 7.5 (5.0-8.0); Protein,Urine Negative (Negative); Specific Gravity,Urine 1.015 (1.001-1.035); Urobilinogen,Urine <2.0 mg/dL (<2.0)
--- NOTE | 2023-09-22 03:19 | CT ---
EXAM: CT Abdomen and Pelvis Without Intravenous Contrast CLINICAL HISTORY: ITS.REASON CT Reason: R flank pain TECHNIQUE: Axial computed tomography images of the abdomen and pelvis without intravenous contrast. CTDI is 20.2 mGy and DLP is 1161.4 mGy-cm. This CT exam was performed using one or more of the following dose reduction techniques: automated exposure control, adjustment of the mA and/or kV according to patient size, and/or use of iterative reconstruction technique. COMPARISON: Comparison made to prior CT scan of the pelvis from May 27, 2019. FINDINGS: Lung bases: Unremarkable. No mass. No consolidation. ABDOMEN: Liver: Unremarkable. Gallbladder and bile ducts: Unremarkable. No calcified stones. No ductal dilation. Pancreas: Unremarkable. No ductal dilation. Spleen: Unremarkable. No splenomegaly. Adrenals: Unremarkable. No mass. Kidneys and ureters: Unremarkable. No obstructing stones. No hydronephrosis. Stomach and bowel: Unremarkable. No obstruction. No mucosal thickening. PELVIS: Appendix: Enlarged appendix measuring 11 mm in maximal diameter without evidence of fecalith. Bladder: Unremarkable. No stones. Reproductive: Unremarkable as visualized. ABDOMEN and PELVIS: Intraperitoneal space: Unremarkable. No free air. No significant fluid collection. Bones/joints: No acute fracture. No dislocation. Soft tissues: There is a 7 mm fat-containing umbilical hernia. Vasculature: Unremarkable. No abdominal aortic aneurysm. Lymph nodes: Prominent lymph nodes scattered throughout the mesenteric fat. IMPRESSION: Findings concerning for acute appendicitis. No evidence of free air, free fluid, abscess or drainable fluid collection. <MYCVCSECTION> Communications: 09/22/23 03:21 Call Doctor Regarding Appendicitis, called Dr. Keith on 09/22 03:24 (-05:00)
== END 2023-09-22 01:47 | disposition left against medical advice (07) ==
LOC: EC 22:29
DX: K37 Unspecified appendicitis (principal); F41.9 Anxiety disorder, unspecified; F32.A Depression, unspecified; Z79.899 Other long term (current) drug therapy; Z91.041 Radiographic dye allergy status; Z53.29 Procedure and treatment not carried out because of patient's decision for other reasons
CPT/HCPCS: 36415; 74176; 80053; 81003; 81025; 82150; 83690; 85025; 99284

== ENCOUNTER 2023-09-22 07:07 | Observation (INO) | payer BC ==
[2023-09-22] MEDS ORDERED: SODIUM CHLORIDE 0.9% 1,000 ML IV STA ×2 (08:04)
[2023-09-22] MEDS ORDERED: ONDANSETRON 4 MG/2 ML VIAL IVP STA (08:04)
[2023-09-22] MEDS ORDERED: MORPHINE SULFATE 4 MG/ML SYRINGE IVP PRN (08:05)
--- NOTE | 2023-09-22 08:07 | ED ---
General Adult HPI - General Chief complaint: Abdominal Pain Stated complaint: Appendicitis Time Seen by Provider: 09/22/23 08:00 Source: patient, family, RN notes reviewed, old records reviewed Mode of arrival: ambulatory Limitations: no limitations - History of Present Illness Initial comments: Patient is a 32-year-old female who presents emergency department after being called back for appendicitis. Was evaluated last night but left AGAINST MEDICAL ADVICE as the emergency department was busy. CT imaging and labs were done last night. They returned this morning and she was called and she returns for treatment. I evaluated her when she was placed in room 24. Labs remarkable for a leukocytosis of 12. She is not . Remainder the labs within acceptable limits. CT imaging is interpreted myself that was obtained earlier this morning at her prior visit was remarkable for findings concerning for acute appendicitis. Patient returns for admission at this time. Endorses intermittent right lower quadrant and left lower quadrant abdominal pain. Currently resting comfortably. However it started yesterday evening. No significant abdominal surgeries previously. Endorses nausea with it as well. Denies diarrhea or fevers. His no other acute complaints. Presents for treatment for acute appendicitis. - Related Data Home Medications Medication Instructions Recorded Confirmed Sertraline [Zoloft] 100 mg PO DAILY 05/13/21 07/07/22 Famotidine [Pepcid] 20 mg PO BID 09/22/23 09/22/23 Semaglutide [Wegovy] 1.7 mg SQ TH 09/22/23 09/22/23 Allergies Allergy/AdvReac Type Severity Reaction Status Date / Time Iodinated Contrast Media Allergy Rash/Hives Verified 09/22/23 08:12 Review of Systems ROS Statement: Those systems with pertinent positive or pertinent negative responses have been documented in the HPI. Review of Systems: CONST: Denies fever EYES: Denies blurry vision ENT: Denies nasal congestion C/V: Denies Chest pain RESP: Denies shortness of breath GI: Endorses abdominal pain : Denies dysuria SKIN: Denies rash. MSK: Denies joint pain. NEURO: Denies headache ROS Other: All systems not noted in ROS Statement are negative. Past Medical History Past Medical History: No Reported History Additional Past Medical History / Comment(s): IBS. History of Any Multi-Drug Resistant Organisms: None Reported Additional Past Surgical History / Comment(s): Colonoscopy. Past Anesthesia/Blood Transfusion Reactions: No Reported Reaction Additional Past Anesthesia/Blood Transfusion Reaction / Comment(s): Never has had general anesthesia. Vertigo. Past Psychological History: Anxiety, Depression Smoking Status: Never smoker Past Alcohol Use History: Occasional Past Drug Use History: None Reported - Past Family History Mother Family Medical History: No Reported History General Exam - General Exam Comments Initial Comments: General: Appears in no acute distress. HEAD: Normal with no signs of head trauma. EYES: EOMI ENT: Hearing grossly intact, normal oropharynx. RESPIRATORY: Clear breath sounds bilaterally. No wheezes, rales, or rhonchi. C/V: Regular rate and rhythm. S1 and S2 auscultated, no edema, peripheral pulses 2+ and intact throughout ABD: Abd is soft, nondistended. Primarily right lower quadrant tenderness to palpation. No guarding. No rebound tenderness. No peritoneal signs. EXT: Normal range of motion, no obvious deformity SKIN: No rashes or lesions observed on exposed skin. NEURO: Alert and oriented x 4. Limitations: no limitations Course Vital Signs 09/22/23 07:15 Temperature 98 F Pulse Rate 89 Respiratory 18 Rate Blood Pressure 100/67 O2 Sat by Pulse 98 Oximetry Medical Decision Making - Medical Decision Making Was pt. sent in by a medical professional or institution (, SNEHA, CAUSTIC PUMP OPERATOR, urgent care, hospital, or fpc...) When possible be specific @ -No Did you speak to anyone other than the patient for history (EMS, parent, family, police, friend...)? What history was obtained from this source @ -No Did you review nursing and triage notes (agree or disagree)? Why? @ -I reviewed and agree with nursing and triage notes Were old charts reviewed (outside hosp., previous admission, EMS record, old EKG, old radiological studies, urgent care reports/EKG's, fpc records)? Report findings @ -Old charts reviewed including visit from earlier this morning when she left AGAINST MEDICAL ADVICE. Differential Diagnosis (chest pain, altered mental status, abdominal pain women, abdominal pain men, vaginal bleeding, weakness, fever, dyspnea, syncope, headache, dizziness, GI bleed, back pain, seizure, CVA, palpatations, mental health, musculoskeletal)? @ -Differential Abdominal Pain Women: Appendicitis, Cholecystitis, diverticulosis, ischemic bowel, pancreatitis, hepatitis, UTI, gastroenteritis, AAA, incarcerated hernia, bowel obstruction, constipation, inflammatory bowel, hepatitis, peptic ulcer disease, splenic infarction, perforated viscus, vulvitis, ovarian torsion, PID, kidney stone, placenta abruption, this is not meant to be an all-inclusive list EKG interpreted by me (3pts min.). @ -None done X-rays interpreted by me (1pt min.). @ -None done CT interpreted by me (1pt min.). @ -CT imaging obtained earlier this morning at visit and left AMA reveals acute appendicitis U/S interpreted by me (1pt. min.). @ -None done What testing was considered but not performed or refused? (CT, X-rays, U/S, labs)? Why? @ -None What meds were considered but not given or refused? Why? @ -None Did you discuss the management of the patient with other professionals (professionals i.e. , PA, CAUSTIC PUMP OPERATOR, lab, RT, psych nurse, addiction social worker, tax manager, teacher, registration officer, disability case manager)? Give summary @ -I discussed with Dr. Marks, on-call surgeon who accepted the admission. Was smoking cessation discussed for >3mins.? @ -No Was critical care preformed (if so, how long)? @ -No Were there social determinants of health that impacted care today? How? (Homelessness, low income, unemployed, alcoholism, drug addiction, transportation, low edu. Level, literacy, decrease access to med. care, [place] [facility], rehab)? @ -No Was there de-escalation of care discussed even if they declined (Discuss DNR or withdrawal of care, Hospice)? DNR status @ -No What co-morbidities impacted this encounter? (DM, HTN, Smoking, COPD, CAD, Cancer, CVA, ARF, Chemo, Hep., AIDS, mental health diagnosis, sleep apnea, morbid obesity)? @ -None Was patient admitted / discharged? Hospital course, mention meds given and route, prescriptions, significant lab abnormalities, going to OR and other pertinent info. @ -Patient presents for treatment for acute appendicitis. Had workup obtained earlier today. We will repeat basic labs, however patient already received CT imaging. She is a leukocytosis as well as CT that shows acute appendicitis. She is called and presents for admission for acute appendicitis. She is made nothing by mouth. She is started on IV fluids. She received Zosyn, when necessary Zofran and morphine. Vital signs are currently within acceptable limits. We will repeat laboratory studies at this time as well. Blood cultures will be obtained and sent. She was in agreement this plan. I spoke with Dr. Marks, [employer] combination teacher surgeon who accepted the admission. Undiagnosed new problem with uncertain prognosis? @ -No Drug Therapy requiring intensive monitoring for toxicity (Heparin, Nitro, Insulin, Cardizem)? @ -No Were any procedures done? @ -No Diagnosis/symptom? @ -Appendicitis Acute, or Chronic, or Acute on Chronic? @ -Acute Uncomplicated (without systemic symptoms) or Complicated (systemic symptoms)? @ -Complicated Side effects of treatment? @ -No Exacerbation, Progression, or Severe Exacerbation? @ -No Poses a threat to life or bodily function? How? (Chest pain, [place], NM, pneumonia, PE, COPD, DKA, ARF, appy, cholecystitis, CVA, Diverticulitis, Homicidal, Suicidal, threat to staff... and all critical care pts) @ -Yes Disposition Clinical Impression: Appendicitis, acute Disposition: ADMITTED IP TO THIS HOSP Condition: Stable Referrals: Regino Hernandez DO [Primary Care Provider] - 1-2 days Time of Disposition: 08:15
[2023-09-22] MEDS ORDERED: ONDANSETRON 4 MG/2 ML VIAL IVP PRN (08:15)
[2023-09-22] MEDS ORDERED: NALOXONE 0.4 MG/ML 1 ML VIAL IV PRN (08:15)
[2023-09-22 08:43] LABS: Basophils % (A) 0 %; Eosinophils # (A) 0.2 k/uL (0-0.7); Eosinophils % (A) 2 %; HGB 14.1 gm/dL (11.4-16.0); Lymphocytes # (A) 1.8 k/uL (1.0-4.8); Lymphocytes % (A) 22 %; MCH 29.9 pg (25.0-35.0); MCHC 33.6 g/dL (31.0-37.0); MCV 88.9 fL (80.0-100.0); Monocytes # (A) 0.4 k/uL (0-1.0); Monocytes % (A) 5 %; Neutrophils # (A) 5.7 k/uL (1.3-7.7); Neutrophils % (A) 70 %; Platelet Count 227 k/uL (150-450); RBC 4.73 m/uL (3.80-5.40); WBC 8.1 k/uL (3.8-10.6)
[2023-09-22] MEDS: PIPERACILLIN-TAZOBACTAM 3.375 GM in SODIUM CHLORIDE 0.9% 100 ML IVPB SCH ×3 (08:56→23:46)
[2023-09-22] MEDS: PANTOPRAZOLE 40 MG/10 ML VIAL IV SCH (09:29)
[2023-09-22 09:42] LABS: INR 1.1 (<1.2); Partial Thromboplastin Time 22.3 sec (22.0-30.0); Prothrombin Time 11.5 sec (10.0-12.5)
[2023-09-22 10:19] LABS: African American GFR (CKD) >90 (>60 ml/min/1.73 sqM); Albumin 3.7 g/dL (3.5-5.0); Albumin/Globulin Ratio 1.3; Amylase 51 U/L (30-110); Carbon Dioxide 21 mmol/L (22-30); Globulin 2.9 g/dL; Non-African American GFR(CKD) >90 (>60 ml/min/1.73 sqM); Total Protein 6.6 g/dL (6.3-8.2)
[2023-09-22 10:46] LABS: AST 20 U/L (14-36); Alkaline Phosphatase 76 U/L (38-126); Blood Urea Nitrogen 9 mg/dL (7-17); Chloride 109 mmol/L (98-107); Glucose 83 mg/dL (74-99); Potassium 3.9 mmol/L (3.5-5.1); Total Bilirubin 0.6 mg/dL (0.2-1.3)
--- NOTE | 2023-09-22 11:03 | P.GSHP ---
History of Present Illness H&P Date: 09/22/23 CHIEF COMPLAINT: Abdominal pain HISTORY OF PRESENT ILLNESS: This is a 32-year-old female who presented to the emergency room with complaints of abdominal pain that started initially in the middle of the abdomen and has moved to the right lower quadrant and radiated to the back. She initially presented yesterday to the ER but left AGAINST MEDICAL ADVICE due to the ER being so busy. Patient had computed tomography scan done that showed acute appendicitis. Patient came back to the ER after being called about the results. She did have elevated white count. She has been nauseous. Denies any vomiting. Denies any fever chills or sweats. Denies any past abdominal surgical history. PAST MEDICAL HISTORY: See below PAST SURGICAL HISTORY: See below MEDICATIONS: See below ALLERGIES: See below SOCIAL HISTORY: No illicit drug use. REVIEW OF SYSTEMS: CONSTITUTIONAL: Denies fever or chills. HEENT: Denies blurred vision, vision changes, or eye pain. Denies hemoptysis CARDIOVASCULAR: Denies chest pain or pressure. RESPIRATORY: No shortness of breath. GASTROINTESTINAL: See HPI for pertinent findings HEMATOLOGIC: Denies bleeding disorders. GENITOURINARY: Denies any blood in urine or increased urinary frequency. SKIN: Denies pruitis. Denies rash. PHYSICAL EXAM: VITAL SIGNS: Reviewed GENERAL: Well-developed in no acute distress. ABDOMEN: Soft. Nondistended. Tenderness with palpation to right lower quadrant. NEUROLOGIC: Alert and oriented. Cranial nerves II through XII grossly intact. LABORATORY DATA: WBC 12.2 yesterday down to 8.1 Hgb 14.1 platelet 227 Potassium 3.9 creatinine 0.71 Urine hCG from yesterday not detected IMAGING: Computed tomography scan abdomen and pelvis finding concerns for acute appendicitis. No evidence of free air, free fluid, abscess or drainable fluid collection. ASSESSMENT: 1. Acute appendicitis PLAN: -Patient scheduled for laparoscopic appendectomy today with Dr. Marks -Keep Patient nothing by mouth -Continue IV antibiotics -Continue IV fluids -Continue pain medication and antiemetics as needed Physician Computer System Specialist note has been reviewed by physician. Signing provider agrees with the documented findings, assessment, and plan of care. I have personally seen and examined the patient, reviewed the SPLASH LINE OPERATOR /PAs history, exam and MDM and agree with the assessment and plan as written. Based on total visit time, I have performed more than 50% of the visit. As above: Patient with history and diagnostics suggesting acute appendicitis. Options discussed. We'll proceed with laparoscopic, possible open appendectomy. Risks of bleeding, infection, conversion to an open procedure, hernia, abscess, bladder bowel and ureteral injury discussed. She understands and wishes to proceed. Past Medical History Past Medical History: No Reported History Additional Past Medical History / Comment(s): IBS. History of Any Multi-Drug Resistant Organisms: None Reported Additional Past Surgical History / Comment(s): Colonoscopy. Past Anesthesia/Blood Transfusion Reactions: No Reported Reaction Additional Past Anesthesia/Blood Transfusion Reaction / Comment(s): Never has had general anesthesia. Vertigo. Past Psychological History: Anxiety, Depression Smoking Status: Never smoker Past Alcohol Use History: Occasional Past Drug Use History: None Reported - Past Family History Mother Family Medical History: No Reported History Medications and Allergies Home Medications Medication Instructions Recorded Confirmed Type Sertraline [Zoloft] 100 mg PO DAILY 05/13/21 09/22/23 History Famotidine [Pepcid] 20 mg PO BID 09/22/23 09/22/23 History Semaglutide [Wegovy] 1.7 mg SQ TH 09/22/23 09/22/23 History Allergies Allergy/AdvReac Type Severity Reaction Status Date / Time Iodinated Contrast Media Allergy Rash/Hives Verified 09/22/23 08:12 Surgical - Exam Vital Signs Temp Pulse Resp BP Pulse Ox 98 F 89 18 100/67 98 09/22/23 07:15 09/22/23 07:15 09/22/23 07:15 09/22/23 07:15 09/22/23 07:15 Results - Labs 09/22/23 08:15 09/22/23 09:15
[2023-09-22 11:50] LABS: ALT 16 U/L (4-34); Anion Gap 8 mmol/L; Calcium 9.3 mg/dL (8.4-10.2); Lipase 85 U/L (23-300); Sodium 138 mmol/L (137-145)
[2023-09-22] MEDS ORDERED: LACTATED RINGERS 1,000 ML IV ONE (18:45)
[2023-09-22] MEDS ORDERED: DEXAMETHASONE SOD PHOSPHATE 4 MG/ML 1 ML VIAL IVP ONE (18:55)
[2023-09-22] MEDS ORDERED: ONDANSETRON 4 MG/2 ML VIAL IVP ONE (18:55)
[2023-09-22] MEDS ORDERED: MIDAZOLAM 2 MG/2 ML VIAL ONE (19:20)
[2023-09-22] MEDS ORDERED: NEOSTIGMINE 1 MG/ML 10 ML VIAL ONE (19:20)
[2023-09-22] MEDS ORDERED: KETOROLAC 15 MG/ML 1 ML VIAL ONE (19:20)
[2023-09-22] MEDS ORDERED: LIDOCAINE 1% INJ 10MG/ML (20 ML MDV) ONE (19:20)
[2023-09-22] MEDS ORDERED: GLYCOPYRROLATE 0.2 MG/ML 2 ML VIAL ONE (19:20)
[2023-09-22] MEDS ORDERED: LIDOCAINE 4% LTA KIT (4 ML) TOPICAL ONE (19:20)
[2023-09-22] MEDS ORDERED: ROCURONIUM 10 MG/ML (5 ML VIAL) IV ONE (19:20)
[2023-09-22] MEDS ORDERED: PROPOFOL 10 MG/ML 20 ML VIAL IV ONE (19:20)
[2023-09-22] MEDS ORDERED: fentaNYL (PF) 50 MCG/ML 2 ML AMP ONE (19:20)
[2023-09-22] MEDS ORDERED: HEPARIN SODIUM,PORCINE 5,000 UNIT/ML 1 ML VIAL SQ ONE (19:20)
[2023-09-22] MEDS ORDERED: SUCCINYLCHOLINE CHLORIDE 200 MG/10 ML VIAL IV ONE (19:20)
[2023-09-22] MEDS ORDERED: BUPIVACAINE (PF) 0.25% 30 ML VIAL SQ ONE (19:21)
[2023-09-22] MEDS ORDERED: SODIUM CHLORIDE 0.9% 1,000 ML IV ONE (19:23)
[2023-09-22] MEDS ORDERED: HYDROmorphone 1 MG/ML 1 ML SYRINGE IVP PRN (20:06)
[2023-09-22] MEDS ORDERED: ACETAMINOPHEN TAB 325 MG TAB PO PRN (20:06)
[2023-09-22] MEDS ORDERED: HYDROcodone/APAP 5-325MG 1 EACH TAB PO PRN (20:06)
--- NOTE | 2023-09-22 20:08 | P.OP ---
Date of Procedure: 09/22/23 Procedure(s) Performed: PREOPERATIVE DIAGNOSIS: Acute appendicitis POSTOPERATIVE DIAGNOSIS: Same PROCEDURE: Laparoscopic appendectomy SURGEON: Kendrick EBL: 5 mL ANESTHESIA: General COMPLICATIONS: None OPERATIVE PROCEDURE: The patient was brought and placed on the operating table in the supine position. The patient was placed under general anesthesia. The abdomen was prepped and draped in the usual sterile fashion. A small horizontal supraumbilical incision was made. The fascia was retracted anteriorly with Jeremi forceps. The Veress needle was advanced into the peritoneal cavity. The saline drop test was normal. Insufflation took place to 15 mmHg. A 5 mm trocar was then placed. An additional 5 mm suprapubic trocar was placed under direct visualization as well as a 12 mm left lower quadrant trocar under direct visualization. The appendix was inspected. It was mildly acutely inflamed. The mesoappendix was dissected. The base of the appendix was divided using a linear 45 mm intestinal stapler. The mesentery itself was divided using LigaSure. The area was then irrigated. No further purulence or bleeding was seen. The appendix was brought out of the peritoneal cavity through the left lower quadrant trocar site with an Endo Catch bag. The fascia at the 12 mm site was closed using a and Galileo 0 Vicryl stitch. The skin at all 3 sites was closed using 4-0 Monocryl sutures. Skin glue was then applied. DISPOSITION: Stable to recovery room
[2023-09-22] MEDS: KETOROLAC 15 MG/ML 1 ML VIAL IVP SCH (23:45)
[2023-09-23 00:53] VITALS: RESP 16
[2023-09-23] MEDS: KETOROLAC 15 MG/ML 1 ML VIAL IVP SCH ×2 (05:54→12:34)
[2023-09-23 08:05] VITALS: BP 121/82; PULSE 89; TEMP 98
[2023-09-23] MEDS: PIPERACILLIN-TAZOBACTAM 3.375 GM in SODIUM CHLORIDE 0.9% 100 ML IVPB SCH (08:32)
[2023-09-23] MEDS: PANTOPRAZOLE 40 MG/10 ML VIAL IV SCH (08:32)
[2023-09-23 08:56] LABS: Basophils # (A) 0.02 X 10*3/uL (0.00-0.10); Basophils % (A) 0.2 %; Eosinophils # (A) 0 X 10*3/uL (0.04-0.35); Eosinophils % (A) 0 %; HCT 39.4 % (37.2-46.3); HGB 12.7 g/dL (12.0-15.0); Lymphocytes # (A) 0.78 X 10*3/uL (0.90-5.00); Lymphocytes % (A) 8.7 %; MCH 28.9 pg (27.0-32.0); MCHC 32.2 g/dL (32.0-37.0); MCV 89.5 FL (80.0-97.0); Mean Platelet Volume 10.9 FL (9.5-12.2); Monocytes # (A) 0.17 X 10*3/uL (0.20-1.00); Monocytes % (A) 1.9 %; NRBC Per 100 WBC 0 X 10*3/uL (0.00-0.01); Neutrophils # (A) 7.95 X 10*3/uL (1.80-7.70); Platelet Count 222 X 10*3/uL (140-440); WBC 8.94 X 10*3/uL (4.50-10.00)
[2023-09-23 09:50] LABS: ALT 12 U/L (8-44); AST 13 U/L (13-35); Albumin 3.7 g/dL (3.8-4.9); Albumin/Globulin Ratio 1.61 Ratio (1.60-3.17); Alkaline Phosphatase 66 U/L (41-126); BUN/Creat Ratio 7.25 Ratio (12.00-20.00); Blood Urea Nitrogen 5.8 mg/dL (9.0-27.0); Calcium 8.8 mg/dL (8.7-10.3); Carbon Dioxide 20.8 mmol/L (21.6-31.8); Chloride 107 mmol/L (96-109); Globulin 2.3 g/dL (1.6-3.3); Glucose 111 mg/dL (70-110); Potassium 4.5 mmol/L (3.5-5.5); Sodium 139 mmol/L (135-145); Total Bilirubin 0.4 mg/dL (0.3-1.2)
--- NOTE | 2023-09-23 11:01 | P.DS ---
Providers Date of admission: 09/22/23 08:17 Expected date of discharge: 09/23/23 Attending physician: Albert Marks Primary care physician: Regino Hernandez Hospital Course: Discharge diagnosis 1. Acute appendicitis status post laparoscopic appendectomy Hospital course This is a 37-year-old female presented with right lower quadrant abdominal pain with computed tomography scan evidence of acute appendicitis. She is status post laparoscopic appendectomy. She tolerated surgery well. Her pain is controlled. She has been up and ambulating. She is tolerating diet. She's afebrile. She denies any difficulty urinating. Her incision sites are clean dry and intact. She is stable for discharge. Please refer to chart for further details. Physician Iv Rn note has been reviewed by physician. Signing provider agrees with the documented findings, assessment, and plan of care. Patient Condition at Discharge: Stable Plan - Discharge Summary New Discharge Prescriptions: New HYDROcodone/APAP 5-325MG [Burdine 5-325] 1 tab PO Q6HR PRN 3 Days #12 tab PRN Reason: Pain Docusate [Colace] 100 mg PO BID #30 capsule Continue Sertraline [Zoloft] 100 mg PO DAILY Famotidine [Pepcid] 20 mg PO BID No Action Semaglutide [Wegovy] 1.7 mg SQ TH Discharge Medication List Sertraline [Zoloft] 100 mg PO DAILY 05/13/21 [History] Famotidine [Pepcid] 20 mg PO BID 09/22/23 [History] Semaglutide [Wegovy] 1.7 mg SQ TH 09/22/23 [History] Docusate [Colace] 100 mg PO BID #30 capsule 09/23/23 [Rx] HYDROcodone/APAP 5-325MG [Burdine 5-325] 1 tab PO Q6HR PRN 3 Days #12 tab 09/23/23 [Rx] Follow up Appointment(s)/Referral(s): Regino Hernandez DO [Primary Care Provider] - 1-2 days Albert Marks MD [Medical Doctor] - 1 Week Activity/Diet/Wound Care/Special Instructions: No driving while taking Burdine No lifting over 10 pounds You may shower. No soaking or tub baths for 2 weeks Very light activity until you are reevaluated at your follow up appointment with your surgeon Hold on taking Wegovy until seen by surgeon Discharge Disposition: HOME SELF-CARE
== END 2023-09-23 13:45 | disposition home or self-care (01) ==
LOC: EC 07:07 → 6NMEDSUR 08:17
PROVIDERS: ADMIT Surgery; ATTEND Surgery
DX: K35.80 Unspecified acute appendicitis (principal); K58.9 Irritable bowel syndrome, unspecified; F32.A Depression, unspecified; F41.9 Anxiety disorder, unspecified; Z79.85 Long-term (current) use of injectable non-insulin antidiabetic drugs; Z79.899 Other long term (current) drug therapy; Z91.041 Radiographic dye allergy status; Z98.890 Other specified postprocedural states
CPT/HCPCS: 96374; 96375; 99285; 81025 ×2; 88304; 80053 ×2; 82150; 83605; 83690; 85025 ×2; 85610; 85730; 84703; 87040; 44970; G0378 ×2; J2543 ×2; J2270; J1644; J1100; J2405; J1170; J1885 ×2; C9113 ×2; J0665

== ENCOUNTER → 2024-06-23 | Outpatient (CLI) | payer BC ==
--- NOTE | 2024-06-23 14:00 | US ---
EXAMINATION TYPE: US pelvis complete transvag DATE OF EXAM: 06/23/2024 COMPARISON: 04/19/2017 CLINICAL INDICATION: Female, 33 years old with history of N94.6 DYSMENORRHEA; ablation 1 year, crampi ng all the time TECHNIQUE: TA/TV. Transabdominal grayscale, color Doppler and spectral Doppler sonographic images o f the pelvis were acquired. Transvaginal sonographic images FINDINGS: Date of LMP: June 07 2024 EXAM MEASUREMENTS: Uterus: 6.6 x 3.8 x 3.5 cm Endometrial Stripe: 1.8 cm Right Ovary: 2.7 x 3.2 x 2.3 cm Left Ovary: 2.7 x 1.9 x 2.1 cm 1. Uterus: Anteverted anterior myometrium appears to have increased vascularity 2. Endometrium: grossly heterogeneous, lobulated appearance, thickened 3. Right Ovary: hypoechoic follicle versus involuting cyst due to free fluid within CDS, measures 2. 0 x 1.6 x 1.6cm 4. Left Ovary: follicles seen 5. Bilateral Adnexa: wnl 6. Posterior cul-de-sac: free fluid IMPRESSION: Suspected Post treatment changes the endometrium with heterogenous appearance with areas of increased vascularity. Further evaluation pelvic MRI with IV contrast may be of benefit. [facility], , 06/23/2024 1:58 PM
== END | disposition home or self-care (01) ==
LOC: RADUSWWP 13:17
PROVIDERS: ATTEND Family Medicine
CPT/HCPCS: 76830; 76856

== ENCOUNTER → 2024-07-10 | Outpatient (CLI) | payer BC ==
--- NOTE | 2024-07-12 09:32 | MR ---
EXAMINATION TYPE: MR pelvis wo/w con DATE OF EXAM: 07/10/2024 10:09 PM COMPARISON: 09/22/2023. CLINICAL INDICATION: Female, 33 years old with history of N94.6; PHH, Dysmenorrhea, Painful periods, Pain right lower quadrant, Abnormal U/S done 06-23-2024 TECHNIQUE: Triplane multisequence imaging was performed of the pelvis. IV Contrast: 11.5 mL Gadobutrol FINDINGS: Reproductive: Vagina: Unremarkable. Uterus: The uterus is anteverted in position. Uterus measures 6.7 cm x 3.9 x 5.5 cm. The endometrium and junctional zone are within normal limits. Multiple fibroids are seen enlarged and the left measu ring up to 0.6 cm. Multiple nabothian cysts are seen in the lower uterine segment. Ovaries: Multiple peripheral follicles are seen in the left ovary. Left ovary measures 3.0 x 2.1 x 2. 3 cm.r the right ovary demonstrate multiple peripheral follicles. The right ovary measures 3.5 x 3.2 x 1.8 cm Posterior to the uterus there may be a focus of intrinsic high T1 signal series 501 image 13. Bladder: Unremarkable. Bowel: Unremarkable as visualized. Peritoneum: No free fluid or adenopathy. Lymph nodes: No evidence of adenopathy. Vasculature: Unremarkable. Musculoskeletal: Bone marrow signal is within normal signal intensity. Abdominal wall/soft tissues: Unremarkable. IMPRESSION: 1. No evidence of suspicious pelvic mass. 2. Polycystic ovarian morphology to the ovaries. 3. Fibroid uterus. 4. Focus of intrinsic high T1 signal posterior to the uterus suspicious for endometriosis implant. [facility], Workstation: [id number], 07/12/2024 9:29 AM
== END | disposition home or self-care (01) ==
LOC: RADMRIMAIN 21:15
PROVIDERS: ATTEND Family Medicine
DX: D25.9 Leiomyoma of uterus, unspecified (principal); N94.6 Dysmenorrhea, unspecified
CPT/HCPCS: 72197; A9585